=== PATIENT | female | born 1945 | race Caucasian/White ===

== ENCOUNTER 2018-03-05 11:37 | Emergency (ER) | payer BC, OTHER ==
--- NOTE | 2018-03-05 12:31 | UC ---
Demarcus Johnson Gabriel, scribed for Prudence Marr MD on 03/05/18 at 1215 . Hand/Wrist HPI - HPI Summary HPI Summary: This patient is a 72 year old F presenting to [facility] c/o two rings stuck on the 4 th digit of her left hand. Pt states she has had them on for 52 years. 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 Pt states last evening they swelled and she decided it was time to have them removed. Pt requesting rings be cut off. No pain related to rings. No other concerns . Pt is IDDM and her tetanus is UTD. Pt's medications reviewed this visit - History Of Current Complaint Chief Complaint: UCUpperExtremity Stated Complaint: RING STUCK ON FINGER Hx Obtained From: Patient Hx Last Menstrual Period: post Onset/Duration: Lasting Hours, Still Present Severity Initially: Mild Severity Currently: Mild Pain Intensity: 0 Pain Scale Used: 0-10 Numeric Associated Signs And Symptoms: Positive: Negative - fever - Allergies/Home Medications Allergies/Adverse Reactions: Allergies Allergy/AdvReac Type Severity Reaction Status Date / Time lisinopril Allergy Intermediate Coughing Verified 03/05/18 11:56 morphine Allergy Itching Verified 03/05/18 11:56 Home Medications: Home Medications Dulaglutide [Trulicity] 1.5 mg SQ WEEKLY 03/05/18 [History Confirmed 03/05/18] Insulin Glargine,Hum.rec.anlog [Toujeo Max Solostar] 90 unit SQ DAILY 03/05/18 [ History Confirmed 03/05/18] Losartan TAB* [Cozaar TAB*] 100 mg PO DAILY 03/05/18 [History Confirmed 03/05/18 ] Rosuvastatin Calcium [Crestor] 1 tab PO DAILY 03/05/18 [History Confirmed ] PMH/Surg Hx/FS Hx/Imm Hx Endocrine History: Diabetes Cardiovascular History: Hypertension - Surgical History Surgical History: Yes Surgery Procedure, Year, and Place: bilateral knee replaced, gallbladder out - Family History Known Family History: Positive: Diabetes - Social History Occupation: Retired Lives: With Family Alcohol Use: None Substance Use Type: None Smoking Status (MU): Never Smoked Tobacco Review of Systems Constitutional: Negative Musculoskeletal: Other: - swelling and ring stuck on 4th digit of right hand All Other Systems Reviewed And Are Negative: Yes Physical Exam - Summary Physical Exam Summary: Vital Signs Reviewed: Yes A+Ox3, no distress Eyes: Conjunctiva Clear ENT: Hearing grossly normal neck: supple Respiratory: Positive: No respiratory distress, No accessory muscle use Cardiovascular: skin color reflect adequate perfusion Musculoskeletal Exam: BRITTON x 4 without difficulty Pt with 2 rings on left ring finger. Unable to remove over knuckles Neurological: Positive: Alert, ambulatory without difficulty Psychological: Positive: Normal Response To Family Skin: Positive: no rash, no ecchymosis Triage Information Reviewed: Yes Vital Signs: Initial Vital Signs Temp 96.5 F 03/05/18 11:50 Pulse 71 03/05/18 11:50 Resp 15 03/05/18 11:50 BP 145/65 03/05/18 11:50 Pulse Ox 95 03/05/18 11:50 Vital Signs Reviewed: Yes Hand/Wrist Course/Dx - Course Course Of Treatment: Blood pressure noted and patient informed to follow up with PCP. Pt requesting 2 rings be removed from left ring finger - has not removed >50 years. after permission, using manual ring cutter, rings removed. Rings placed in specimen cup and given to patient - witness RN. no wounds to skin after removal - Differential Dx/Diagnosis Provider Diagnoses: ring removal x 2 Discharge - Sign-Out/Discharge Documenting (check all that apply): Discharge/Admit/Transfer - Discharge Plan Condition: Stable Disposition: HOME Patient Education Materials: Soft Tissue Foreign Body (ED) Referrals: Jody Price MD [Primary Care Provider] - Additional Instructions: - okay to wash area with soap and water - okay to take Tylenol or Ibuprofen for pain - contact your doctor or return with questions or concern - Billing Disposition and Condition Condition: STABLE Disposition: Home The documentation as recorded by the Demarcus giles Gabriel accurately reflects the service I personally performed and the decisions made by , Prudence Marr MD.
== END 2018-03-05 12:35 | disposition home or self-care (01) ==
LOC: UCEAST 11:37
DX: M79.89 Other specified soft tissue disorders (principal); E11.9 Type 2 diabetes mellitus without complications; Z79.4 Long term (current) use of insulin; I10 Essential (primary) hypertension; Z88.5 Allergy status to narcotic agent; Z88.8 Allergy status to other drugs, medicaments and biological substances; Z96.653 Presence of artificial knee joint, bilateral; Z90.49 Acquired absence of other specified parts of digestive tract
CPT/HCPCS: 99202; G0463